=== PATIENT | female | born 1970 | race Caucasian/White ===

== ENCOUNTER 2018-01-28 15:35 | Emergency (ER) | payer OTHER ==
[2018-01-28] MEDS: SOD CHLORIDE 0.9% 1,000 ML IV (17:10)
[2018-01-28] MEDS: HYDROmorphONE 1 MG/ML SYG IV (17:10)
[2018-01-28] MEDS: PROCHLORPERAZINE 10 MG INJ IV (17:10)
[2018-01-28] MEDS: DIPHENHYDRAMINE 50 MG INJ IV (17:10)
[2018-01-28] MEDS: LORAZEPAM 2 MG INJ IV (18:45)
== END 2018-01-28 21:25 | disposition home or self-care (01) ==
LOC: E/R 15:35
DX: G43.909 Migraine, unspecified, not intractable, without status migrainosus (principal)
CPT/HCPCS: 36415; 70450; 96374; 96375; 99285-25